=== PATIENT | male | born 1975 | race African-American/Black ===

== ENCOUNTER 2018-12-24 08:59 | Inpatient (IN) | payer OTHER ==
[2018-12-24 10:02] VITALS: BMI 29.1
--- NOTE | 2018-12-24 11:26 | HP ---
COWS - Scale Resting Pulse: 2= [place] 101-120 Sweatin= Chills/Flushing Restless Observation: 1= Difficult to Sit Still Pupil Size: 0= Normal to Room Light Bone or Joint Aches: 1= Mild Discomfort Runny Nose/ Eye Tearin= Runny Nose/Eyes GI Upset > 30mins: 2= Nausea/Diarrhea Tremor Observation: 2= Slight Tremor Visible Yawning Observation: 1= 1-2x During Session Anxiety or Irritability: 1=Feels Anxious/Irritable Goose Flesh Skin: 0=Smooth Skin COWS Score: 13 Admission ROS S - HPI Chief Complaint: I need to get clean so I can see my daughter Allergies/Adverse Reactions: Allergies Allergy/AdvReac Type Severity Reaction Status Date / Time No Known Allergies Allergy Verified 12/24/18 09:52 History of Present Illness: 43 yo gentleman referred here from [place] for detox from opiates, also using cocaine, THC, crystal meth and marijuana. First time here but long history of drug use. Denies using alcohol. NO seizures but has had overdose and black outs. Patient reports being on suboxone but does not like it and continued to abuse opiates while on it. Was in [facility] until about two weeks ago - he was supposed to go to [facility] but states the discharge plan was never made ( patient states the discharge counselor didn't do her job at [facility]). He was Rx subxone but used it up in a few days and continued using street drugs. We discussed getting onto a methadone program. He cannot see his daughter until he shows he is 'clean' and takes a domestic violence class. [place]: Others' Prescriptions Patient Name: Dereje Clayton Date: 1975 Address: [address] [place] [id number] Sex: Male Rx Written Rx Dispensed Drug Quantity Days Supply Prescriber Name Payment Method Dispenser 12/20/2018 12/20/2018 buprenorphine-naloxone 8-2 mg sl film 7 7 Susana Castañeda NP [facility] 12/13/2018 12/13/2018 buprenorphine-naloxone 12-3 mg sl film 7 7 Susana Castañeda BUSINESS CONTINUITY COORDINATOR [facility] Patient Name: Dereje Clayton Date: 1975 Address: [address] [place] [address] Sex: Male Rx Written Rx Dispensed Drug Quantity Days Supply Prescriber Name Payment Method Dispenser 12/07/2018 12/07/2018 buprenorphine-naloxone 8-2 mg sl film 10 5 Rolando Britt MD [facility] 09/26/2018 10/06/2018 buprenorphine-naloxone 8-2 mg sl film 5 3 Jamar Mayfield [facility] 08/22/2018 08/22/2018 buprenorphine-naloxone 8-2 mg sl film [facility] 08/16/2018 buprenorphine-naloxone 2-0.5 mg sl tablet 28 7 Chong Butts MD [facility] * - Ebola screening Have you traveled outside of the country in the last 21 days: No (N) Have you had contact with anyone from an Ebola affected area: No - Review of Systems Constitutional: Loss of Appetite, Malaise, Changes in sleep, Weakness, Unintentional Wgt. Loss EENT: reports: Blurred Vision, Nose Congestion Respiratory: reports: Wheezing Cardiac: reports: No Symptoms Reported GI: reports: Nausea, Poor Appetite, Abdominal cramping : reports: Dysuria Musculoskeletal: reports: Back Pain, Muscle Pain Integumentary: reports: Change in Hair/Nails (right great toe pain) Neuro: reports: Headache, Tremors Endocrine: reports: No Symptoms Reported Hematology: reports: No Symptoms Reported Psychiatric: reports: Judgement Intact, Mood/Affect Appropiate, Orientated x3, Anxious Other Systems: Reviewed and Negative Patient History - Patient Medical History Hx Asthma: No Hx Chronic Obstructive Pulmonary Disease (COPD): No Hx Cancer: No Hx Cardiac Disorders: No Hx Hypertension: Yes (no meds) Hx Hypercholesterolemia: No Hx Pacemaker: No Hx Seizures: No Hx Diabetes: No Hx Gastrointestinal Disorders: Yes (GERD) Hx Liver Disease: No Hx Genitourinary Disorders: No Hx Sexually Transmitted Disorders: No Hx Renal Disease (ESRD): No Hx Thyroid Disease: No Hx Human Immunodeficiency Virus (HIV): No Hx Hepatitis C: No Hx Depression: Yes (no psych f/u, history of hospitalizations) Hx Suicide Attempt: Yes (years ago, slit wrists) Hx Bipolar Disorder: Yes (no meds) Hx Schizophrenia: Yes ('I bug out' "I hear weird voices junkies talk to me') - Patient Surgical History Past Surgical History: Yes Hx Orthopedic Surgery: Yes (LLE deep laceration repair from kicking broken glass ) Anesthesia Reaction: No - PPD History Previous Implant?: Yes Documented Results: Negative w/o proof Implanted On Prior R Admission?: No PPD to be Administered?: Yes - Reproductive History Patient is a Female of Child Bearing Age (11 -55 yrs old): No - Smoking Cessation Smoking history: Current every day smoker Have you smoked in the past 12 months: Yes Aproximately how many cigarettes per day: 10 Hx Chewing Tobacco Use: No Initiated information on smoking cessation: Yes 'Breaking Loose' booklet given: 12/24/18 (give on floor) - Substance & Tx. History Hx Alcohol Use: No Hx Substance Use: Yes Substance Use Type: Cocaine, Heroin, Marijuana, Opiates Hx Substance Use Treatment: Yes (detox, rehab) - Substances abused Crack Substance route: Smoking Frequency: Daily Amount used: $400/day Age of first use: 41 Date of last use: 12/24/18 Heroin Substance route: Inhalation Frequency: Daily Amount used: 5-10 bags Age of first use: 20 Date of last use: 12/24/18 Non-Rx Methadone Substance route: Oral Frequency: 1-2 times per week Amount used: 20mg (not sure amount) Age of first use: 20 (started sipping mothers' methadone) Date of last use: 12/23/18 Marijuana/Hashish Substance route: Smoking Frequency: Daily Amount used: 2 blunts Age of first use: 15 Date of last use: 12/23/18 Family Disease History - Family Disease History Family Disease History: Diabetes: Father (living - hx drug use, AIDS), Heart Disease: Father, CA: Mother (, AIDS -IDU, lung cancer), Respiratory: Son (one age 18 - asthma), Other: Father, Mother, Brother (one brother living - HIV, hx IDU), Sister (one - healthy - no drugs), Son, Daughter (10 month old ) Admission Physical Exam BHS - Vital Signs Vital Signs: Vital Signs - 24 hr 12/24/18 09:48 Temperature 97.6 F Pulse Rate 103 H Respiratory 19 Rate Blood Pressure 162/111 H - Physical General Appearance: Yes: Nourished, Appropriately Dressed, Moderate Distress, Tremorous, Anxious HEENTM: Yes: EOMI, Hearing grossly Normal, Normocephalic, Normal Voice, Pharynx Normal Respiratory: Yes: No Respiratory Distress, Wheezing Neck: Yes: No masses,lesions,Nodules Breast: Yes: Breast Exam Deferred Cardiology: Yes: Regular Rhythm, Regular Rate, Tachycardia Abdominal: Yes: Soft Genitourinary: Yes: Dysuria Back: Yes: Normal Inspection Musculoskeletal: Yes: full range of Motion, Gait Steady Extremities: Yes: Normal Inspection, Normal Range of Motion, Tremors Neurological: Yes: Fully Oriented, Alert, Normal Mood/Affect, Normal Response Integumentary: Yes: Normal Color, Warm, Other (right big toe with mild swelling around the nail (no erythema) with dried blood) Lymphatic: Yes: Within Normal Limits - Diagnostic (1) Opioid dependence with withdrawal Current Visit: Yes Status: Chronic (2) Cocaine dependence Current Visit: Yes Status: Chronic Qualifiers: Substance use status: uncomplicated Qualified Code(s): F14.20 - Cocaine dependence, uncomplicated (3) Methamphetamine abuse Current Visit: Yes Status: Chronic (4) Cannabis dependence Current Visit: Yes Status: Chronic (5) Wheezes Current Visit: Yes Status: Chronic (6) Current nicotine use Current Visit: Yes Status: Chronic (7) Pain of great toe Current Visit: Yes Status: Acute Qualifiers: Laterality: right Qualified Code(s): M79.674 - Pain in right toe(s) Comment: mild swelling around toenail - no erythema but some dried blood noted Cleared for Admission S - Detox or Rehab [facility] Level of Care: Medically Managed Detox Regimen/Protocol: Methadone Breathalyzer - Breathalyzer Breathalyzer: 0 Urine Drug Screen - Test Device Lot number: [id number] Expiration date: 09/16/20 - Control Is test valid?: Yes - Results Drug screen NEGATIVE: No Urine drug screen results: THC-Marijuana, ADRIA-Cocaine, MET-Methamphetamine, MTD- Methadone, BUP-Suboxone Inpatient Rehab Admission - Rehab Decision to Admit Inpatient rehab admission?: No
[2018-12-24] MEDS ORDERED: IBUPROFEN 400 MG TABLET (FP) PO PRN (11:32)
[2018-12-24] MEDS ORDERED: ACETAMINOPHEN 325 MG TABLET (FP) PO PRN ×2 (11:32)
[2018-12-24] MEDS ORDERED: METHADONE HCL 10 MG TABLET (FOR DETOX USE ONLY) PO ONE (11:32)
[2018-12-24] MEDS ORDERED: MENTHOL/PHENOL 1 EACH UD MM PRN (11:32)
[2018-12-24] MEDS ORDERED: METHOCARBAMOL 500 MG TABLET PO PRN (11:32)
[2018-12-24] MEDS ORDERED: BISMUTH SUBSALICYLATE 524 MG/30 ML UD PO PRN (11:32)
[2018-12-24] MEDS ORDERED: MAG HYDROX/AL HYDROX/SIMETH 30 ML UNIT-DOSE CUP PO PRN (11:32)
[2018-12-24] MEDS ORDERED: hydrOXYzine PAMOATE 25 MG CAPSULE (FP) PO PRN (11:32)
[2018-12-24] MEDS ORDERED: MAGNESIUM CITRATE 300 ML BOTTLE PO PRN (11:32)
[2018-12-24] MEDS ORDERED: ALBUTEROL SO4 2.5/IPRATROPIUM 0.5 INH SOL 3 ML VIAL.NEB. NEB PRN (13:19)
[2018-12-24] MEDS: BUDESONIDE/FORMETEROL FUMARATE 80/4.5 mcg INHALER IH SCH ×2 (14:20→22:50)
[2018-12-24] MEDS: BACITRACIN 15 GM TUBE TOPICAL OINTMENT TP SCH ×2 (14:20→22:50)
[2018-12-24] MEDS: diazePAM 5 MG TABLET PO SCH (21:55)
[2018-12-24] MEDS: THIAMINE HCL 100 MG TABLET (FP) PO SCH (22:16)
[2018-12-25] MEDS: diazePAM 5 MG TABLET PO SCH ×3 (03:57→16:43)
[2018-12-25] MEDS ORDERED: METHADONE HCL 10 MG TABLET (FOR DETOX USE ONLY) ONE (09:16)
[2018-12-25] MEDS ORDERED: METHADONE HCL 5 MG TABLET (FOR DETOX USE ONLY) ONE (09:17)
[2018-12-25] MEDS ORDERED: METHADONE (DETOX) 20 MG, METHADONE (DETOX) 5 MG PO ONE (10:00)
[2018-12-25 10:22] LABS: HEMATOCRIT 41.4 % (35.4-49); HEMOGLOBIN 13.7 GM/dL (11.7-16.9); MCH 30.2 pg (25.7-33.7); MCHC 33.1 g/dl (32.0-35.9); MEAN CELL VOLUME 91.3 fl (80-96); MEAN PLT VOLUME 10.5 fl (7.5-11.1); PLATELET COUNT 214 K/MM3 (134-434); RBC 4.53 M/mm3 (4.00-5.60); RDW 14.5 % (11.9-15.9); WHITE BLOOD COUNT 7.5 K/mm3 (4.0-10.0)
[2018-12-25] MEDS: PRENATAL VITAMINS W/ FOLIC ACID TABLET (FP) PO SCH (10:22)
[2018-12-25] MEDS: BUDESONIDE/FORMETEROL FUMARATE 80/4.5 mcg INHALER IH SCH ×2 (10:22→22:20)
[2018-12-25] MEDS: BACITRACIN 15 GM TUBE TOPICAL OINTMENT TP SCH ×2 (10:23→22:20)
[2018-12-25 10:24] LABS: ALBUMIN 3.4 g/dl (3.4-5.0); BILIRUBIN,TOTAL 0.3 mg/dL (0.2-1); CALCIUM 8.7 mg/dL (8.5-10.1); CREATININE 0.8 mg/dL (0.55-1.3); POTASSIUM 3.9 mmol/L (3.5-5.1); TOT PROT 6.4 g/dl (6.4-8.2)
[2018-12-25] MEDS: HYDROCORTISONE 1% TOPICAL CREAM 30 GM TUBE TP SCH ×2 (11:15→22:20)
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
--- NOTE | 2018-12-25 16:42 | PN ---
BHS COWS - Scale Resting Pulse: 0= [place] 80 or Below Sweatin= Chills/Flushing Restless Observation: 1= Difficult to Sit Still Pupil Size: 0= Normal to Room Light Bone or Joint Aches: 2= Severe Diffuse Aches Runny Nose/ Eye Tearin= Runny Nose/Eyes GI Upset > 30mins: 2= Nausea/Diarrhea Tremor Observation of Outstretched Hands: 2= Slight Tremor Visible Yawning Observation: 0= None Anxiety or Irritability: 2=Irritable/Anxious Goose Flesh Skin: 0=Smooth Skin COWS Score: 12 BHS Progress Note (SOAP) Subjective: Anxious, sweating, tremor. Patient c/o eczema on face and arms requesting cream Objective: 12/25/18 16:41 Last Vital Signs Temp Pulse Resp BP Pulse Ox 97.7 F 71 18 119/75 12/25/18 13:13 12/25/18 13:13 12/25/18 13:13 12/25/18 13:13 Laboratory Tests 12/25/18 12/25/18 12/25/18 08:00 08:00 08:00 WBC 7.5 RBC 4.53 Hgb 13.7 Hct 41.4 MCV 91.3 MCH 30.2 MCHC 33.1 RDW 14.5 Plt Count 214 MPV 10.5 Sodium 142 Potassium 3.9 Chloride 104 Carbon Dioxide 31 Anion Gap 8 BUN 11.0 Creatinine 0.8 Est GFR (CKD-EPI)AfAm 127.70 Est GFR (CKD-EPI)NonAf 110.18 Random Glucose 93 Calcium 8.7 Total Bilirubin 0.3 AST 17 ALT 42 Alkaline Phosphatase 89 Total Protein 6.4 Albumin 3.4 RPR Titer Nonreactive Labs reviewed Assessment: 12/25/18 16:41 Withdrawal sxs Plan: Continue detox Encouraged PO water intake Eczema: hydrocortisone cream bid to affected area on face and arms
--- NOTE | 2018-12-25 17:16 | EKG ---
Test Reason : Blood Pressure : / mmHG Vent. Rate : 064 BPM Atrial Rate : 064 BPM P-R Int : 182 ms QRS Dur : 100 ms QT Int : 458 ms P-R-T Axes : 054 -24 080 degrees QTc Int : 472 ms NORMAL SINUS RHYTHM T WAVE ABNORMALITY, CONSIDER LATERAL ISCHEMIA PROLONGED QT ABNORMAL ECG NO PREVIOUS ECGS AVAILABLE Confirmed by JAMARI MENDEZ MD ([id number]) on 12/25/2018 5:16:14 PM Referred By: Confirmed By:JAMARI MENDEZ MD
[2018-12-25] MEDS: MELATONIN 5 MG TABLETS PO PRN (22:17)
[2018-12-25] MEDS: THIAMINE HCL 100 MG TABLET (FP) PO SCH (22:17)
[2018-12-26] MEDS: cloNIDine HCL 0.1 MG TABLET PO PRN ×2 (01:41→14:24)
[2018-12-26] MEDS ORDERED: METHADONE HCL 10 MG TABLET (FOR DETOX USE ONLY) PO ONE (10:00)
[2018-12-26] MEDS: BACITRACIN 15 GM TUBE TOPICAL OINTMENT TP SCH ×2 (10:29→22:26)
[2018-12-26] MEDS: PRENATAL VITAMINS W/ FOLIC ACID TABLET (FP) PO SCH (10:30)
[2018-12-26] MEDS: BUDESONIDE/FORMETEROL FUMARATE 80/4.5 mcg INHALER IH SCH ×2 (10:30→22:27)
[2018-12-26] MEDS: HYDROCORTISONE 1% TOPICAL CREAM 30 GM TUBE TP SCH ×2 (10:30→22:27)
[2018-12-26] MEDS: MAGNESIUM HYDROX 2400MG/30ML ORAL SUSPENSION 30 ML CUP PO PRN (10:32)
--- NOTE | 2018-12-26 12:09 | PN ---
BHS COWS - Scale Resting Pulse: 0= [place] 80 or Below Sweatin= Chills/Flushing Restless Observation: 1= Difficult to Sit Still Pupil Size: 0= Normal to Room Light Bone or Joint Aches: 2= Severe Diffuse Aches Runny Nose/ Eye Tearin= Runny Nose/Eyes GI Upset > 30mins: 2= Nausea/Diarrhea Tremor Observation of Outstretched Hands: 1= Tremor [place], Not Seen Yawning Observation: 1= 1-2x During Session Anxiety or Irritability: 2=Irritable/Anxious Goose Flesh Skin: 0=Smooth Skin COWS Score: 12 S Progress Note (SOAP) Subjective: nausea sweats shakes interrupted sleep body aches Objective: 12/26/18 12:08 Vital Signs Temperature 97.5 F L 12/26/18 09:38 Pulse Rate 74 12/26/18 09:38 Respiratory Rate 18 12/26/18 09:38 Blood Pressure 124/82 12/26/18 09:38 O2 Sat by Pulse Oximetry (%) Laboratory Tests 12/25/18 12/25/18 12/25/18 08:00 08:00 08:00 WBC 7.5 RBC 4.53 Hgb 13.7 Hct 41.4 MCV 91.3 MCH 30.2 MCHC 33.1 RDW 14.5 Plt Count 214 MPV 10.5 Sodium 142 Potassium 3.9 Chloride 104 Carbon Dioxide 31 Anion Gap 8 BUN 11.0 Creatinine 0.8 Est GFR (CKD-EPI)AfAm 127.70 Est GFR (CKD-EPI)NonAf 110.18 Random Glucose 93 Calcium 8.7 Total Bilirubin 0.3 AST 17 ALT 42 Alkaline Phosphatase 89 Total Protein 6.4 Albumin 3.4 RPR Titer Nonreactive labs noted aaox3 ambulating no acute distress Assessment: 12/26/18 12:15 withdrawal sx Plan: continue detox increase fluids zofran prn
[2018-12-26] MEDS ORDERED: ONDANSETRON *ODT* 4 MG TABLET SL PRN (12:16)
[2018-12-26] MEDS: THIAMINE HCL 100 MG TABLET (FP) PO SCH (22:27)
[2018-12-26] MEDS: MELATONIN 5 MG TABLETS PO PRN (22:28)
[2018-12-27] MEDS ORDERED: METHADONE HCL 10 MG TABLET (FOR DETOX USE ONLY) ONE (09:58)
[2018-12-27] MEDS ORDERED: METHADONE HCL 5 MG TABLET (FOR DETOX USE ONLY) ONE (09:58)
[2018-12-27] MEDS ORDERED: METHADONE (DETOX) 10 MG, METHADONE (DETOX) 5 MG PO ONE (10:00)
[2018-12-27] MEDS: PRENATAL VITAMINS W/ FOLIC ACID TABLET (FP) PO SCH (10:28)
[2018-12-27] MEDS: BACITRACIN 15 GM TUBE TOPICAL OINTMENT TP SCH ×2 (10:29→22:00)
[2018-12-27] MEDS: HYDROCORTISONE 1% TOPICAL CREAM 30 GM TUBE TP SCH ×2 (10:29→22:00)
[2018-12-27] MEDS: MAGNESIUM HYDROX 2400MG/30ML ORAL SUSPENSION 30 ML CUP PO PRN (10:31)
--- NOTE | 2018-12-27 11:21 | PN ---
BHS COWS - Scale Resting Pulse: 0= [place] 80 or Below Sweatin= Chills/Flushing Restless Observation: 1= Difficult to Sit Still Pupil Size: 0= Normal to Room Light Bone or Joint Aches: 2= Severe Diffuse Aches Runny Nose/ Eye Tearin= Nasal Congestion GI Upset > 30mins: 0= None Tremor Observation of Outstretched Hands: 1= Tremor [place], Not Seen Yawning Observation: 0= None Anxiety or Irritability: 1=Feels Anxious/Irritable Goose Flesh Skin: 0=Smooth Skin COWS Score: 7 BHS Progress Note (SOAP) Subjective: sweats chills feeling much better my big is painful after pulling out an ingrown nail. Objective: 12/27/18 11:19 Vital Signs Temperature 96.8 F L 12/27/18 09:47 Pulse Rate 74 12/27/18 09:47 Respiratory Rate 16 12/27/18 09:47 Blood Pressure 128/87 12/27/18 09:47 O2 Sat by Pulse Oximetry (%) Laboratory Tests 12/25/18 12/25/18 12/25/18 08:00 08:00 08:00 WBC 7.5 RBC 4.53 Hgb 13.7 Hct 41.4 MCV 91.3 MCH 30.2 MCHC 33.1 RDW 14.5 Plt Count 214 MPV 10.5 Sodium 142 Potassium 3.9 Chloride 104 Carbon Dioxide 31 Anion Gap 8 BUN 11.0 Creatinine 0.8 Est GFR (CKD-EPI)AfAm 127.70 Est GFR (CKD-EPI)NonAf 110.18 Random Glucose 93 Calcium 8.7 Total Bilirubin 0.3 AST 17 ALT 42 Alkaline Phosphatase 89 Total Protein 6.4 Albumin 3.4 RPR Titer Nonreactive labs noted aaox3 ambulating no acute distress Assessment: 12/27/18 11:19 withdrawals left big toe assessed, some swelling/redness noted around toe nail. pt is able to wiggle toe but it does appear infected. Plan: continue detox increase fluids continue with bacitracin oint as ordered will start Bactrim oral abx for 7 days
[2018-12-27] MEDS: BUDESONIDE/FORMETEROL FUMARATE 80/4.5 mcg INHALER IH SCH ×2 (11:59→22:00)
[2018-12-27] MEDS: SULFAMETHOXAZOLE/TRIMETHOPRIM 800MG/160MG D.S. TABLET PO SCH ×2 (14:43→22:00)
[2018-12-27] MEDS: hydrOXYzine PAMOATE 25 MG CAPSULE (FP) PO PRN (19:56)
[2018-12-27] MEDS: THIAMINE HCL 100 MG TABLET (FP) PO SCH (22:00)
[2018-12-27] MEDS: MELATONIN 5 MG TABLETS PO PRN (22:01)
[2018-12-28] MEDS ORDERED: METHADONE HCL 10 MG TABLET (FOR DETOX USE ONLY) PO ONE (10:00)
[2018-12-28] MEDS: SULFAMETHOXAZOLE/TRIMETHOPRIM 800MG/160MG D.S. TABLET PO SCH ×2 (10:10→22:05)
[2018-12-28] MEDS: PRENATAL VITAMINS W/ FOLIC ACID TABLET (FP) PO SCH (10:10)
[2018-12-28] MEDS: BACITRACIN 15 GM TUBE TOPICAL OINTMENT TP SCH ×2 (10:11→22:08)
[2018-12-28] MEDS: HYDROCORTISONE 1% TOPICAL CREAM 30 GM TUBE TP SCH ×2 (10:11→22:07)
[2018-12-28] MEDS: BUDESONIDE/FORMETEROL FUMARATE 80/4.5 mcg INHALER IH SCH ×2 (10:12→22:05)
--- NOTE | 2018-12-28 10:28 | PN ---
BHS COWS - Scale Resting Pulse: 0= [place] 80 or Below Sweatin= No chills or Flushing Restless Observation: 1= Difficult to Sit Still Pupil Size: 0= Normal to Room Light Bone or Joint Aches: 1= Mild Discomfort Runny Nose/ Eye Tearin= None GI Upset > 30mins: 0= None Tremor Observation of Outstretched Hands: 1= Tremor [place], Not Seen Yawning Observation: 0= None Anxiety or Irritability: 1=Feels Anxious/Irritable Goose Flesh Skin: 0=Smooth Skin COWS Score: 4 [facility] Progress Note (SOAP) Subjective: little anxiety feeling much better Objective: 12/28/18 10:27 Vital Signs Temperature 97.5 F L 12/28/18 09:37 Pulse Rate 74 12/28/18 09:37 Respiratory Rate 16 12/28/18 09:37 Blood Pressure 140/84 12/28/18 09:37 O2 Sat by Pulse Oximetry (%) aaox3 ambulating no acute distress Assessment: 12/28/18 10:28 mild withdrawal sx Plan: continue detox increase fluids d/c in am
[2018-12-28] MEDS: hydrOXYzine PAMOATE 25 MG CAPSULE (FP) PO PRN (17:41)
[2018-12-28] MEDS ORDERED: hydrOXYzine PAMOATE 25 MG CAPSULE (FP) PO PRN (20:36)
[2018-12-28] MEDS ORDERED: hydrOXYzine PAMOATE 50 MG CAPSULE (FP) PO PRN (20:37)
[2018-12-28] MEDS: THIAMINE HCL 100 MG TABLET (FP) PO SCH (22:05)
[2018-12-29] MEDS ORDERED: METHADONE HCL 5 MG TABLET (FOR DETOX USE ONLY) PO ONE (06:00)
[2018-12-29 09:29] VITALS: BP 136/65; PULSE 81; TEMP 97.6
--- NOTE | 2018-12-29 09:51 | DS ---
[facility] Detox Discharge Summary Admission Date: 12/24/18 Discharge Date: 12/29/18 - History Present History: Cannabis Dependence, Cocaine Dependence, Opioid Dependence - Physical Exam Results Vital Signs: Vital Signs Temperature 97.6 F 12/29/18 09:29 Pulse Rate 81 12/29/18 09:29 Respiratory Rate 18 12/29/18 09:29 Blood Pressure 136/65 12/29/18 09:29 O2 Sat by Pulse Oximetry (%) Pertinent Admission Physical Exam Findings: pt arrived in withdrawals Laboratory Tests 12/25/18 12/25/18 12/25/18 08:00 08:00 08:00 WBC 7.5 RBC 4.53 Hgb 13.7 Hct 41.4 MCV 91.3 MCH 30.2 MCHC 33.1 RDW 14.5 Plt Count 214 MPV 10.5 Sodium 142 Potassium 3.9 Chloride 104 Carbon Dioxide 31 Anion Gap 8 BUN 11.0 Creatinine 0.8 Est GFR (CKD-EPI)AfAm 127.70 Est GFR (CKD-EPI)NonAf 110.18 Random Glucose 93 Calcium 8.7 Total Bilirubin 0.3 AST 17 ALT 42 Alkaline Phosphatase 89 Total Protein 6.4 Albumin 3.4 RPR Titer TB (QFT) Incubation TB Test (QFT) Nil 0.07 TB Test (QFT) Mitogen >10.00 TB Test (QFT) Antigen 0.08 TB Test (QFT) Negative TB Positive Criteria 12/25/18 08:00 WBC RBC Hgb Hct MCV MCH MCHC RDW Plt Count MPV Sodium Potassium Chloride Carbon Dioxide Anion Gap BUN Creatinine Est GFR (CKD-EPI)AfAm Est GFR (CKD-EPI)NonAf Random Glucose Calcium Total Bilirubin AST ALT Alkaline Phosphatase Total Protein Albumin RPR Titer Nonreactive TB (QFT) Incubation TB Test (QFT) Nil TB Test (QFT) Mitogen TB Test (QFT) Antigen TB Test (QFT) TB Positive Criteria today pt is feeling better no s/s of withdrawals no acute distress - Treatment Hospital Course: Detox Protocol Followed, Detoxed Safely, Responded well, Discharged Condition Good, Rehab Referral Accepted Patient has Accepted a Rehab Referral to: pt referred to [facility] inpatient rehab - Medication Discharge Medications: Ambulatory Orders Sulfamethoxazole/Trimethoprim [Bactrim Ds -] 1 tab PO BID 7 Days #14 tablet 04/06 - Diagnosis (1) Cannabis dependence Current Visit: Yes Status: Chronic (2) Cocaine dependence Current Visit: Yes Status: Chronic Qualifiers: Substance use status: uncomplicated Qualified Code(s): F14.20 - Cocaine dependence, uncomplicated (3) Opioid dependence with withdrawal Current Visit: Yes Status: Chronic (4) Pain of great toe Current Visit: Yes Status: Acute Qualifiers: Laterality: right Qualified Code(s): M79.674 - Pain in right toe(s) (5) Substance induced mood disorder Current Visit: Yes Status: Acute (6) Current nicotine use Current Visit: Yes Status: Chronic (7) GERD (gastroesophageal reflux disease) Current Visit: Yes Status: Chronic (8) HTN (hypertension) Current Visit: Yes Status: Chronic Qualifiers: Hypertension type: essential hypertension Qualified Code(s): I10 - Essential (primary) hypertension (9) Methamphetamine abuse Current Visit: Yes Status: Chronic (10) Nicotine dependence Current Visit: Yes Status: Chronic Qualifiers: Nicotine product type: cigarettes Substance use status: uncomplicated Qualified Code(s): F17.210 - Nicotine dependence, cigarettes, uncomplicated (11) Schizoaffective disorder Current Visit: Yes Status: Chronic - AMA Did Patient Leave Against Medical Advice: No
[2018-12-29] MEDS: PRENATAL VITAMINS W/ FOLIC ACID TABLET (FP) PO SCH (10:05)
[2018-12-29] MEDS: HYDROCORTISONE 1% TOPICAL CREAM 30 GM TUBE TP SCH (10:06)
[2018-12-29] MEDS: BACITRACIN 15 GM TUBE TOPICAL OINTMENT TP SCH (10:06)
[2018-12-29] MEDS: BUDESONIDE/FORMETEROL FUMARATE 80/4.5 mcg INHALER IH SCH (10:06)
[2018-12-29] MEDS: SULFAMETHOXAZOLE/TRIMETHOPRIM 800MG/160MG D.S. TABLET PO SCH (10:07)
== END 2018-12-29 11:14 | disposition home or self-care (01) | DRG 773 ==
LOC: YASAS 08:59 → Y6N 13:41
PROVIDERS: ADMIT Surgery; ATTEND Surgery
PROC: HZ2ZZZZ Detoxification Services for Substance Abuse Treatment (ICD-10-PCS; principal; 2018-12-24)
DX: F11.23 Opioid dependence with withdrawal (principal); F14.20 Cocaine dependence, uncomplicated; F12.20 Cannabis dependence, uncomplicated; F15.10 Other stimulant abuse, uncomplicated; F17.210 Nicotine dependence, cigarettes, uncomplicated; F19.24 Other psychoactive substance dependence with psychoactive substance-induced mood disorder; F25.9 Schizoaffective disorder, unspecified; I10 Essential (primary) hypertension; K21.9 Gastro-esophageal reflux disease without esophagitis; M79.674 Pain in right toe(s); Z91.5 Personal history of self-harm
CPT/HCPCS: 36415; 80053; 85027; 86480; 86593; 93005; 93010; J0735